=== PATIENT | male | born 1945 | race Caucasian/White ===

== ENCOUNTER 2018-01-31 11:12 | Observation (INO) | payer OTHER ==
[~2018-01-31] VITALS: Ht 175.3 cm; Wt 94.0 kg
[2018-01-31] VITALS (7 sets, daily range): BP systolic 129–152; BP diastolic 72–92; PULSE 64–83; TEMP 36.7–37; O2SAT 64–94; Ht 175.3 cm; Wt 94.0 kg
[~2018-01-31 11:12] MED LIST: ASPCH81X PO; FLUT0.15; HYDR25TA4 PO; METO25TA3 PO; SIMV10TA2 PO
--- NOTE | 2018-01-31 11:42 | Pre Sedation Assessment ---
Pre Sedation Assessment General Date of Sedation: January 31, 2018. Review Cardiovascular: regular rate, rhythm Lungs: lungs clear Pre-Sedation Airway Assessment Smoking Status: Never Smoker Hx of Sleep Apnea: No Short Thick Neck: No Thyro-mental Distance: > 3 Finger Breadths Oral Cavity: Dentures Mallampati Classification: Class I ASA Classification: Class II NPO Status Date of Last Intake of Fluids: January 30, 2018 Time of Last Intake of Fluids: 2100 Date of Last Intake of Solids: January 30, 2018 Time of Last Intake of Solids: 1730 Procedure Planning Contraindications for Sedation: None Current Medications Reviewed: Yes Notes The planned sedation has been discussed with the patient. Informed Consent was obtained. I have identified the patient, determined the appropriateness of sedation and have assessed the patient immediately prior to the procedure. All medicine(s) and interventions are by my order.
--- NOTE | 2018-01-31 11:42 | History and Physical ---
History & Physical Date January 31, 2018. Chief Complaint palpitations History of Present Illness The patient is a 72 year old male with complaints of palpitations, lightheadedness and dizziness with near syncope. Additional History Hepatic Disease: No Endocrine Disorder: No Kidney Disease: No Hypertension: Yes Heart Disease: No Bleeding Tendencies: No Infectious Diseases: No Home Medications Scheduled Aspirin (Aspirin Chewable), 81 MG PO DAILY Hydrochlorothiazide (Hctz), 1 TAB PO DAILY Metoprolol Succ (Toprol Xl) (Toprol-Xl), 12.5 MG PO DAILY Simvastatin (Zocor), 1 TAB PO DAILY Miscellaneous Medications Fluticasone Propionate (Nasal) (Flonase Allergy Relief) Physical Examination Skin: warm/dry, no rash ENT: normal ENT inspection Head: normocephalic, atraumatic Neck: supple Respiratory/Chest: lungs clear, normal breath sounds Cardiovascular: regular rate, rhythm, no edema, no murmur Abdomen / GI: normal bowel sounds, non tender Extremities: normal inspection Neurologic/Psych: alert, oriented x 3 ASA Classification: ASA Class II Plan of Treatment Impression: SVT HTN HLD Plan: EPS with possible ablation Reviewed the procedure and potential risks with the patient again today; consent obtained
[2018-01-31] MEDS ORDERED: FENTANYL CITRATE INJ 50 MCG/1 ML 2 ML VIAL ONE ×3 (11:58→14:37)
[2018-01-31] MEDS ORDERED: MIDAZOLAM HCL 5 MG/ML 1 ML VIAL ONE ×2 (11:59→12:23)
[2018-01-31] MEDS ORDERED: ISOPROTERENOL 200 MCG / 50ML D5W ONE (12:59)
--- NOTE | 2018-01-31 15:53 | Post Sedation Assessment ---
Post Sedation Assessment General Date of Sedation January 31, 2018. Vital Signs: Vital Signs Past 12 Hours Date Time Temp Pulse Resp B/P (MAP) Pulse Ox O2 Delivery O2 Flow Rate FiO2 01/31/18 15:50 73 18 131/94 (106) 92 Room Air 01/31/18 15:46 77 18 137/90 (106) 92 Room Air 01/31/18 15:39 76 18 145/92 (109) 93 Room Air Post Procedure Recovery Score Activity: (2) Moves 4 extremities * Respiration: (2) Deep breath/cough Circulation: (2) +/-20% PreAnes Value Consciousness: (2) Fully Awake Oxygen Saturation: (2) > 92% On Room Air Post Anesthesia Score: 10 Discharge Sedation Level of Care: Fast Track Phase II Post Sedation Plan On clinical assessment, the patient appears to have tolerated the sedation without complications. Patient is recovering as anticipated. Patient will continue to be monitored by nursing and may be discharged when sedation discharge criteria are met per below protocol. Upon Completions of procedure and additional 15 minutes continue every 5 minute vital signs and the P.A.R. score; then discharge to a Phase I or Fast Track to Phase II per the following guidelines: * Discharge Patient to appropriate Phase II area if PAR is 8 or greater or return to pre- procedure baseline. The post - procedure orders will be as directed. * If PAR score is less than 8 or not return to pre-procedure baseline then patient will follow Phase I monitoring till PAR is reached for Phase II. The Phase I may be done in procedure room or may call to secure a Phase I area. * If naloxone or flumazenil are used for reversal, hold in Phase I for an additional 60 -120 minutes before discharge to Phase II. Please call the Sedation Physician to re-evaluate and complete post-note for discharge to Phase II area. Do NOT discharge from procedure sedation or Phase 1 until post- sedation evaluation note is complete by procedure /sedation MD Sedation Discharge Instructions to be given to the patient at discharge to home.
--- NOTE | 2018-01-31 15:54 | [facility] Post Operative Brief Note ---
Immediate Operative Summary Operative Date January 31, 2018. Pre-Operative Diagnosis avnrt Post-Operative Diagnosis same Procedure(s) Performed eps, 3d mapping of his bundle and C/S os, slow pathway modification Surgeon andrea gregory Production Analyst Surgeon(s) none Estimated Blood Loss <5cc Findings See Below see official report Fluids (cc crystalloids) 460cc Specimens none Drains None Anesthesia Type IV Sedat Cons RN Only Complication(s) none Disposition Accompanied Pt To Recover: yes Disposition: PCU
--- NOTE | 2018-01-31 15:56 | Discharge Instructions ---
Discharge Instructions Date of Service January 31, 2018. Admission Reason for Admission: SVT Discharge Discharge Diagnosis / Problem: avnrt Discharge Goals Goal(s): Improve function Activity Recommendations Activity Limitations: as noted below Lifting Limitations: no more than 10 pounds (no heavy lifting or squating for 10 pounds for 1 week) . Instructions / Follow-Up Instructions / Follow-Up ACTIVITY RECOMMENDATIONS: It is common to feel weak and fatigue for a few days. * Do not drive or operate any motorized equipment for the next 1 day. * Limit stair usage (2 or 3 trips a day only) for the next 1 day. * Do not lift anything heavier than 10 pounds for the next 7 days. * Do not engage in vigorous exercise or any sports for the next 7 days. * You may shower the day after your procedure, but do not immerse the area for three days. Cleanse the site gently with soap and water. SPECIAL CARE INSTRUCTIONS: * You may replace the pressure dressing or band-aid the morning after the procedure. * After your procedure, it is normal to have a small bruise or small lump at the site. Examine your site daily for any change in the bruise or lump, redness, swelling, drainage or numbness. Notify your doctor if any change. BLEEDING: * If there is a small amount of bleeding at the site, lie down and apply firm pressure with a clean cloth for ten minutes. When the bleeding stops, lie quietly keeping the procedure limb straight for six hours. Notify your doctor as soon as possible. * If the bleeding does not stop after ten minutes or if there is a large amount of bleeding or spurting, call 911 immediately. Continue to lie down and hold firm pressure until help arrives. SKIN IRRITATION: * You may experience some redness and/or swelling in the area where radiation was administered. If any skin irritation occurs, please contact your family physician. FOLLOW UP VISIT: Keep any scheduled doctor appointments. Current Hospital Diet Patient's current hospital diet: AHA Diet (Heart Healthy) Discharge Diet Recommended Diet: AHA Diet (Heart Healthy) Procedures Procedures Performed: eps, 3d mapping of his bundle and C/S os, slow pathway modification Pending Studies Studies pending at discharge: no Medical Emergencies . Who to Call and When: Medical Emergencies: If at any time you feel your situation is an emergency, please call 911 immediately. . Non-Emergent Contact Non-Emergency issues call your: Human Resource Adviser . . "Provider Documentation" section prepared by Aniyah Rizvi. .
--- NOTE | 2018-01-31 15:56 | Discharge Instructions ---
Discharge Instructions Date of Service January 31, 2018. Admission Reason for Admission: SVT Activity Recommendations . Instructions / Follow-Up Instructions / Follow-Up ACTIVITY RECOMMENDATIONS: It is common to feel weak and fatigue for a few days. * Do not drive or operate any motorized equipment for the next 1 day. * Limit stair usage (2 or 3 trips a day only) for the next 1 day. * Do not lift anything heavier than 10 pounds for the next 7 days. * Do not engage in vigorous exercise or any sports for the next 7 days. * You may shower the day after your procedure, but do not immerse the area for three days. Cleanse the site gently with soap and water. SPECIAL CARE INSTRUCTIONS: * You may replace the pressure dressing or band-aid the morning after the procedure. * After your procedure, it is normal to have a small bruise or small lump at the site. Examine your site daily for any change in the bruise or lump, redness, swelling, drainage or numbness. Notify your doctor if any change. BLEEDING: * If there is a small amount of bleeding at the site, lie down and apply firm pressure with a clean cloth for ten minutes. When the bleeding stops, lie quietly keeping the procedure limb straight for six hours. Notify your doctor as soon as possible. * If the bleeding does not stop after ten minutes or if there is a large amount of bleeding or spurting, call 911 immediately. Continue to lie down and hold firm pressure until help arrives. SKIN IRRITATION: * You may experience some redness and/or swelling in the area where radiation was administered. If any skin irritation occurs, please contact your family physician. FOLLOW UP VISIT: Keep any scheduled doctor appointments. Current Hospital Diet Patient's current hospital diet: AHA Diet (Heart Healthy) Procedures Procedures Performed: eps, 3d mapping of his bundle and C/S os, slow pathway modification Medical Emergencies . Who to Call and When: Medical Emergencies: If at any time you feel your situation is an emergency, please call 911 immediately. . Non-Emergent Contact . . "Provider Documentation" section prepared by Aniyah iRzvi. .
[2018-01-31] MEDS ORDERED: ACETAMINOPHEN 325 MG TAB PO PRN (16:00)
--- NOTE | 2018-01-31 16:01 | Discharge Summary ---
Discharge Summary Date of Service January 31, 2018. Discharge Summary Admission Date: 01/31/2018 Discharge Date: February 01, 2018 Discharge Disposition: Home Principal Diagnosis: avnrt s/p slow pathway modification Secondary Diagnoses/Problems: htn hld Procedures: eps, 3d mapping of His bundle and C/S os, slow pathway modification, isoprel drug challenge Medication Reconciliation Continued Medications: Aspirin (Aspirin Chewable) 81 Mg Chew 81 MG PO DAILY Fluticasone Propionate (Nasal) (Flonase Allergy Relief) 50 Mcg/Act Spr Hydrochlorothiazide (Hctz) 25 Mg Tab 1 TAB PO DAILY for 30 Days, #30 TAB 5 Refills Metoprolol Succ (Toprol Xl) (Toprol-Xl) 25 Mg Tabcr 12.5 MG PO DAILY, #30 TAB Simvastatin (Zocor) 10 Mg Tab 1 TAB PO DAILY for 90 Days, #90 TAB 3 Refills Admission Information Physical Exam (per Admitting): aaox3, NAD NC/AT, EOMI Supple, No JVD Nrl S1/S2, no murmur CTA b/l No w/r/r Soft NT/ND No edema b/l LE No focal deficits skin intact Hospital Course Pt admitted for elective EPS and possible ablation. 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 Monitored overnight and discharged home. Total time spent on discharge = > 30 minutes This includes examination of the patient, discharge planning, medication reconciliation, and communication with other providers. Discharge Instructions ACTIVITY RECOMMENDATIONS: It is common to feel weak and fatigue for a few days. * Do not drive or operate any motorized equipment for the next 1 day. * Limit stair usage (2 or 3 trips a day only) for the next 1 day. * Do not lift anything heavier than 10 pounds for the next 7 days. * Do not engage in vigorous exercise or any sports for the next 7 days. * You may shower the day after your procedure, but do not immerse the area for three days. Cleanse the site gently with soap and water. SPECIAL CARE INSTRUCTIONS: * You may replace the pressure dressing or band-aid the morning after the procedure. * After your procedure, it is normal to have a small bruise or small lump at the site. Examine your site daily for any change in the bruise or lump, redness, swelling, drainage or numbness. Notify your doctor if any change. BLEEDING: * If there is a small amount of bleeding at the site, lie down and apply firm pressure with a clean cloth for ten minutes. When the bleeding stops, lie quietly keeping the procedure limb straight for six hours. Notify your doctor as soon as possible. * If the bleeding does not stop after ten minutes or if there is a large amount of bleeding or spurting, call 911 immediately. Continue to lie down and hold firm pressure until help arrives. SKIN IRRITATION: * You may experience some redness and/or swelling in the area where radiation was administered. If any skin irritation occurs, please contact your family physician. FOLLOW UP VISIT: Keep any scheduled doctor appointments.
[2018-01-31] MEDS ORDERED: NURSING VERBAL MED ORDER ONE (18:30)
[2018-01-31] MEDS ORDERED: ASPIRIN 81 MG ECTAB PO ONE (18:45)
[2018-01-31] MEDS ORDERED: HYDROCHLOROTHIAZIDE 25 MG TAB PO ONE (18:45)
[2018-01-31] MEDS ORDERED: METOPROLOL SUCC 25MG EXT REL TAB PO ONE (18:45)
[2018-01-31] MEDS ORDERED: SIMVASTATIN 10 MG TAB PO ONE (18:45)
[2018-01-31] MEDS ORDERED: IV FLUIDS COMPLETED PRN (19:15)
[2018-01-31] MEDS ORDERED: COUGH DROP (SUGAR FREE) LOZ 24 LOZ/1 BOX LOZ PRN (20:00)
--- NOTE | 2018-01-31 23:19 | OPERATIVE REPORT ---
DATE OF OPERATION: 01/31/2018 PREOPERATIVE DIAGNOSIS: Supraventricular tachycardia. 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 COMPLICATIONS: None. CONDITION: Stable. URINE OUTPUT: Not applicable. SPECIMENS: None. FINDINGS: See below. DRAINS: None. ANESTHESIA: Monitored conscious sedation administered under my supervision by Justin Resendiz. Start time 1209; end time 1539. Total of 10 mg of Versed, 250 mcg of fentanyl. IV FLUIDS: 460 mL. INDICATIONS: This 72-year-old gentleman who has a past medical history for SVT in which he ended up in the Emergency Room a few times and he required adenosine, hypertension, hyperlipidemia. Due to the recurrent SVT, he was recommended electrophysiology study with possible ablation. CONSENT: Consent was obtained prior to the patient going into the electrophysiology lab. The patient was informed the risks, benefits, alternatives to the procedure. Risks include but not limited to sudden cardiac , cardiac arrhythmias, cerebrovascular accident, myocardial infarction, injury to the blood vessels, chamber of the heart or the [place] electrical system where he would need a permanent pacemaker, bleeding, and infection. The patient understood these risks and agreed to the procedure as planned. Informed consent was obtained. DESCRIPTION OF THE PROCEDURE: The patient was brought into the electrophysiology lab in a fasting state. He was connected to continuous cardiac technologist. He was prepped and draped over the bilateral groins in normal surgical standard fashion. Monitored conscious sedation was given throughout the procedure for the patient's comfort level. [place] precautions were maintained throughout the procedure. A 10 mL of 1% lidocaine were given in the bilateral groins for local anesthesia. Then using modified Seldinger technique, venous access was obtained in the following manner. The left femoral vein had a 6-Angolan sheath followed by a Antonia quadripolar catheter positioned in the right ventricular apex. A 7-Angolan sheath followed by the quadripolar catheter positioned over the His bundle region. A 7-Angolan sheath followed by a Decapolar Biosense DF curve coronary sinus catheter positioned down the coronary sinus. Of note, I could not get it that far out. I was having some difficulties due to the anatomy. The right femoral vein initially had a 6-Angolan sheath followed by a quadripolar Antonia catheter positioned in the high right atrium. This was eventually swapped out for an SRO sheath followed by a #4 mm DF curved ablation Biosense catheter. With all the catheters in position, electrophysiology study was performed with the following findings: RI interval 166 milliseconds, QRS 92 milliseconds, QT 368 milliseconds, sinus cycle length 824 milliseconds, AH 88 milliseconds, HV 42 milliseconds, AV Wenckebach 320 milliseconds, AV node ERP was 600/300 less than or equal to 400/200. Atrial ERP was 600/210, 400/200. Right ventricular ERP was 600/220 and 400/200. I gave up to triple atrial extrastimuli and there was no inducible SVT, so isuprel at 2 was started. Isuprel at 2 was started. Once we had an effective isuprel response, another electrophysiology study was performed with following findings: RI interval 158 milliseconds, QRS 94 milliseconds, QT 348 milliseconds, sinus cycle length 646 milliseconds, AH 46 milliseconds, HV 38 milliseconds, AV Wenckebach 260 milliseconds, AV node ERP was less than or equal to 400/310, atrial ERP was less than or equal to 400/200. Up to atrial extrastimuli triples, there was no inducible SVT, so the isuprel was increased to 4. On isuprel at 4 with burst pacing, atrial at 230 and 250. SVT was induced with an AH jump. Tachycardia cycle length was 322 milliseconds. The VA time was 84 milliseconds. The atrial retrograde conduction was concentric and there was a VAV response with ventricular pacing and continuation of the tachycardia. So, we diagnosed typical AVNRT and set up to do slow pathway modification. Removing the right atrial catheter, we then swapped out the 6-Angolan sheath in the right femoral greater vein for an SRO and then placed the ablation catheter in. We did 3D mapping of the His bundle region and the coronary sinus os. Then, I placed the catheter on the low right atrial septum and of note, I never really had the best stability between his breathing and a ridge along the region. I gave a series of radiofrequency delarosa at 25 harden for about 20-30 seconds in duration, sometimes a minute. I got a few junctionals here and there. So, I tried to do a post-ablation once I felt like we gave a good amount of radiofrequency delarosa. Post-ablation EPS with the following findings: Sinus cycle length 756 milliseconds, RI 194 milliseconds, QRS 90 milliseconds, QT 338 milliseconds, AH 96 milliseconds, HV 38 milliseconds, AV Wenckebach 330 milliseconds, AV node 600/260 and 400/250. Atrial ERP was 600/230, 400/220. Right ventricular ERP was 600/230 and 400/220. Isuprel was ultimately started at 4, AV Wenckebach was 270 milliseconds but SVT was induced again. So, I went back to do some more radiofrequency delarosa. I increased the harden to 30. I gave another series of delarosa. I had a little bit more junctional response. So after I felt secured, I went back to do a second post-ablation electrophysiology study with the following findings: RI interval 176 milliseconds, QRS 98 milliseconds, QT 376 milliseconds, AH 74 milliseconds, HV 38 milliseconds, AV Wenckebach 350 milliseconds, AV node 600/240 and atrial 600/210. Right ventricular 400/220. While I was doing ventricular ERP, there was VA conduction and at 400/200, he went into a slower SVT tachycardia cycle length of 480-500. The VA time was a lot longer about 110. Initially was nonsustained. As I continued to do more of the electrophysiology study with some atrial extrastimuli, I did find that the SVT at a slower rate was a little bit more sustained and I had to do sometimes burst ventricular and atrial pacing at the same time to break it; not sure if this was some atypical AVNRT. It is definitely slower than what his clinical AVNRT was and since I did already do a good amount of radiofrequency burning and I did not want to go back in and do more at this time. We will see how he does clinically in regards to this other possible atypical AVNRT. All the catheters were removed from the body and then the sheaths were pulled and hemostasis was created with manual compression. IMPRESSION 1. 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 2. Possible post-ablation atypical atrioventricular deyanira reentry tachycardia was not ablated as it did not seem to be his clinical arrhythmia. PLAN: Monitor the patient overnight, 12-lead ECG. We will continue his home medications. He is not to do any heavy lifting or squatting for 1 week and I will see him in our [place] office in 1 month's time. I attest to the content of the Intraoperative Record and any orders documented therein. Any exceptions are noted below. MTDD
[2018-02-01 03:30] VITALS: BP 124/81; PULSE 57; TEMP 36.7; O2SAT 92
[2018-02-01 07:07] VITALS: BP_SYST 139; BP_SYST 156; BP_DIAS 86; BP_DIAS 94; PULSE 61; TEMP 36.7; O2SAT 93
--- NOTE | 2018-02-01 08:01 | Cardiology Follow-Up ---
Subjective Subjective Date of Service: February 01, 2018. Pt evaluation today including: conversation w/ patient, physical exam, lab review Pain: none Review of Systems Constitutional: No fever, No fatigue Respiratory: No shortness of breath, No dyspnea on exertion Cardiac: No chest pain, No edema, No palpitations Abdomen: No nausea, No vomiting Neurologic: No weakness Endo: No fatigue Objective Vital Signs Last Vital Signs Documentation Date Time Temp Pulse Resp B/P (MAP) Pulse Ox O2 Delivery O2 Flow Rate FiO2 02/01/18 07:07 36.7 61 18 156/94 (114) 93 139/86 (103) 02/01/18 04:00 Room Air Physical Exam: General Appearance: WD/WN, no apparent distress Eyes: bilateral eyes PERRL, bilateral eyes EOMI Neck: supple, no JVD Respiratory/Chest: lungs clear, normal breath sounds Cardiovascular: regular rate, rhythm, no edema, no murmur Abdomen: soft Neurologic/Psychiatric: alert, oriented x 3 Skin: warm/dry (b/l groins soft no hematoma non tender) Assessment and Plan Impression: 1. AVNRT s/p slow pathway modification 2. 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 HTN 4. HLD Plan: -Ok for discharge home today -Continue home medications -No heavy lifting or squatting for 1 week -F/u with me in 1 month Discharge planning: home Medications: Medications Administered Medications (Trade) Dose Ordered Sig/Yajaira Route Start Time Stop Time Status Last Admin Dose Admin Fentanyl Citrate (Fentanyl Inj) 100 mcg STK-MED ONCE .ROUTE 01/31/18 11:58 01/31/18 11:59 DC 01/31/18 11:58 250 MCG Midazolam HCl (Versed Inj) 5 mg STK-MED ONCE .ROUTE 01/31/18 11:59 01/31/18 12:00 DC 01/31/18 11:59 10 MG Isoproterenol HCl (Isoproterenol / D5W) 200 mcg STK-MED ONCE .ROUTE 01/31/18 12:59 01/31/18 13:00 DC 01/31/18 12:59 200 MCG Aspirin (Ecotrin Tab) 81 mg DAILY PO 02/01/18 09:00 03/03/18 08:59 02/01/18 07:51 81 MG Hydrochlorothiazide (Hydrochlorothiazide Tab) 25 mg DAILY PO 02/01/18 09:00 03/03/18 08:59 02/01/18 07:51 25 MG Metoprolol Succinate (Toprol Xl Tab) 12.5 mg DAILY PO 02/01/18 09:00 03/03/18 08:59 02/01/18 07:51 12.5 MG Simvastatin (Zocor Tab) 10 mg DAILY PO 02/01/18 09:00 03/03/18 08:59 02/01/18 07:51 10 MG Aspirin (Ecotrin Tab) 81 mg ONE ONCE PO 01/31/18 18:45 01/31/18 18:46 DC 01/31/18 19:36 81 MG Hydrochlorothiazide (Hydrochlorothiazide Tab) 25 mg ONE ONCE PO 01/31/18 18:45 01/31/18 18:46 DC 01/31/18 19:36 25 MG Metoprolol Succinate (Toprol Xl Tab) 12.5 mg ONE ONCE PO 01/31/18 18:45 01/31/18 18:46 DC 01/31/18 19:37 12.5 MG Simvastatin (Zocor Tab) 10 mg ONE ONCE PO 01/31/18 18:45 01/31/18 18:46 DC 01/31/18 19:38 10 MG Menthol (Nice Krista) 1 krista PRN PRN KRISTA 01/31/18 20:00 03/02/18 19:59 01/31/18 20:50 1 KRISTA Lab Results: Telemetry: SR ECG: SR 70bpm APC Incomplete RBBB LAFB Last 24 Hours Test 01/31/18 19:10 Hepatitis C Antibody Screen NEG
[2018-02-01 08:18] VITALS: BP 156/90; PULSE 61; TEMP 36.9; O2SAT 94
[2018-02-01 08:58] VITALS: BP 156/90; PULSE 61; TEMP 36.9; O2SAT 94
[2018-02-01] MEDS ORDERED: SIMVASTATIN 10 MG TAB PO SCH (09:00)
[2018-02-01] MEDS ORDERED: METOPROLOL SUCC 25MG EXT REL TAB PO SCH (09:00)
[2018-02-01] MEDS ORDERED: ASPIRIN 81 MG ECTAB PO SCH (09:00)
[2018-02-01] MEDS ORDERED: HYDROCHLOROTHIAZIDE 25 MG TAB PO SCH (09:00)
== END 2018-02-01 09:45 | disposition home or self-care (01) ==
LOC: C.EP 11:12 → ENRESERV 14:43 → C.2T 15:53
PROVIDERS: ADMIT Internal Medicine; ATTEND Internal Medicine
DX: I47.1 Supraventricular tachycardia (principal); R55 Syncope and collapse; I10 Essential (primary) hypertension; E78.5 Hyperlipidemia, unspecified; Z79.82 Long term (current) use of aspirin